=== PATIENT | male | born 2000 | race Caucasian/White ===

== ENCOUNTER 2023-08-11 06:45 | Emergency (ER) | payer BC, SELFPAY ==
[2023-08-11 06:54] VITALS: BP 146/88
[2023-08-11 07:11] LABS: Urine Albumin Trace (Neg - Trace); Urine Bilirubin Negative (Negative); Urine Character Slightly Cloudy (Clear); Urine Color Yellow; Urine Glucose Negative (Negative); Urine Ketone Negative (Negative); Urine Leukocyte Trace (Negative); Urine Nitrite Negative (Negative); Urine Occult Blood 4+ (Negative); Urine Specific Gravity 1.015 (<1.030); Urine Urobilinogen Negative (Neg - 1+)
--- NOTE | 2023-08-11 07:27 | ED.GENMED ---
History of Present Illness
General
Chief Complaint: Urinary Symptoms
Source: patient
Exam Limitations: none
Time Seen by Provider: 08/11/23 07:15
Nursing documentation reviewed up to this point in time: agreed with
Travel History
Have you had any contact with someone who has COVID-19?: No
Do you have any symptoms of coronavirus? Fever > 100 degrees, chills, cough, shortness of breath, sore throat, loss of taste or smell, muscle aches, or headache?: No
History of Present Illness
History of Present Illness:
22-year-old male brought to the ER by father for evaluation. Patient had hematuria yesterday and was awoken by right flank pain 5 AM this morning. Patient complains of pain to the right flank rating to his right abdomen. He denies any fever or
chills. He has vomited several times. He reports he had his appendix out 2 months ago. No prior history of renal stone.
Past History
Past History
ED Past Medical History: Asthma and Psychiatric (Anxiety, depression, bipolar)
ED Past Surgical History: None
Social History
Tobacco: Smoker
Drug: Marijuana (Medical marijuana)
Review of Systems
Review of Systems
Allergies reviewed?: Yes
All Other Systems: ROS reviewed and negative except as documented in HPI and ROS
Constitutional: Reports no symptoms; Denies fever, fatigue or chills
EENT: Reports no symptoms
Respiratory: Reports no symptoms
Cardiac: Reports no symptoms
ABD/GI: Reports abdominal pain, nausea and vomiting
: Reports flank pain
Musculoskeletal: Reports no symptoms
Skin: Reports no symptoms
Neurological: Reports no symptoms
Psychiatric: Reports no symptoms
Phy Exam
General Physical Exam
General Presentation: mild distress
General age: appears stated age
General Skin: diaphoretic
General Habitus: normal
General Mental: alert
Gastrointestinal Exam
Gastrointestinal Exam: non tender and soft
Neurological Exam
Neurological Exam: alert and oriented x3
Musculoskeletal Exam
Musculoskeletal Exam: full ROM
Skin Exam
Skin Exam: normal color and warm/dry
Psychiatric Exam
Psychiatric Exam: normal mood/affect
Course
Orders/Labs/Results
Orders:
Orders
08/11/23 07:03
Urinalysis Reflex To Culture Urgent
Date Specimen was Collected: 08/11/23
Time Specimen was Collected: 07:02
Urine Microscopic Reflex Cult Urgent
08/11/23 07:19
CT Abd/pel Without Iv Or Oral Urgent
Comment:
Reason For Exam: right flank pain
Ketorolac [Toradol] 15 mg IV NOW STA
08/11/23 07:20
0.9% Sodium Chloride 1000 ml [Nss] 1,000 ml IV BOLUS
08/11/23 07:38
Complete Blood Count/With Diff Urgent
Comprehensive Metabolic Panel Urgent
08/11/23 08:51
Potassium Chloride 10% Elixir [KCl Elixir] 40 meq PO NOW STA
Abnormal Lab Results
08/11/23 08/11/23
07:03 07:38
MPV 11.1 H fL
(7.4-10.4)
Potassium 3.3 L mmol/L
(3.5-5.1)
Glucose 125 H mg/dl
(70-99)
ALT 64 H U/L
(0-50)
Ur Occult Blood Reflex 4+ A
(Negative)
Leukocyte Esterase Rfl Trace A
(Negative)
Urine RBC >100 A /HPF
(0-2)
Urine Bacteria (Reflex) Few A
(Negative)
08/11/23 07:38
08/11/23 07:38
Vital Signs
Initial and Last Documented VS:
Initial Vital Signs
Temp Pulse Resp BP Pulse Ox
97.8 F 77 28 146/88 98
08/11/23 06:54 08/11/23 06:54 08/11/23 06:54 08/11/23 06:54 08/11/23 06:54
Last Documented Vital Signs
Temp Pulse Resp BP Pulse Ox
97.8 F 77 28 146/88 98
08/11/23 06:54 08/11/23 06:54 08/11/23 06:54 08/11/23 06:54 08/11/23 06:54
Student Ministries Director consulted with Physician
Student Ministries Director consulted with physician?: Yes
Name of Physician Consulted: elias
MDM/Problems Addressed
Differential Diagnosis Includes:
not limited to: renal colic, uti muscle pain
MDM/Problems Addressed:
Patient with 1.5 mm partially obstructing calculus in the distal right ureter approxi-4 cm above the UVJ. Patient comfortable here after receiving Toradol. No evidence of UTI. Patient's potassium slight low at 3.3. Patient given 1 dose of oral
KCl educated on potassium rich foods.
will d/c with flomax, pain meds if needed outpt ortho follow up
*Radiology
Radiology exam reviewed: radiology read reviewed
*Pulse Oximetry
Patient hypoxic: no
*Critical Care Note
Total Time (30-74mins, 75-104mins- exclusive of procedures): Not Applicable
ED Attending Note
-
Portions of this chart may have been created with voice recognition software.� Occasional wrong word or��sound alike� substitutions may have occurred due to the inherent limitations of voice recognition software.
Discharge Plan
Departure
Patient Disposition: Home (Routine Discharge)
Date of Disposition: 08/11/23
Time of Disposition: 08:55
Patient with high blood pressure during this ER visit?: Yes
Condition: Fair
Covid-19: Not Applicable
Discharge Problem:
Renal colic on right side
Instructions: Renal Colic (DC), BLOOD PRESSURE
Prescriptions:
New
hydrocodone-acetaminophen 5-300 mg tablet
1 tab PO Q6H PRN (Reason: Pain) Qty: 10 0RF
tamsulosin [Flomax] 0.4 mg capsule
0.4 mg PO DAILY Qty: 7 0RF
No Action
divalproex [Depakote ER] 500 mg Tablet Extended Release 24 Hr
1,250 mg PO DAILY
fluoxetine 60 mg Tablet
60 mg PO DAILY
lorazepam 1 mg tablet
1 mg PO TID PRN (Reason: anxiety) Qty: 5 0RF
acetaminophen [acetaminophen] 325 mg tablet
650 mg PO Q4HPRN PRN (Reason: mild pain) Qty: 1 0RF
ibuprofen 200 mg tablet
400 - 600 mg PO Q6HPRN PRN (Reason: moderate pain) Qty: 1 0RF
oxycodone 5 mg tablet
5 mg PO Q4HPRN PRN (Reason: breakthrough/severe pain) Qty: 10 0RF
Referrals:
Randall Martinez MD [Active] -
Activity Restrictions/Additional Instructions:
As discussed your CAT scan shows a kidney stone. You may take ibuprofen 600 mg every 8 hours with food however if does not relieve your symptoms you may take narcotic pain medication which has been sent to your pharmacy. This will cause
constipation please take [id number] Colace, stool softener while taking this medication. Do not drive or drink alcohol while taking this medication.
Stay well-hydrated. Strain urine.
Follow-up with urology in the next several days please call Sunday for an appointment. Return if any worsening of symptoms or increased pain fever nausea vomiting.
Interventions
Interventions:
*Risk Screen - Suicide Last Done: 08/11/23 07:27
*General Assessment Last Done: 08/11/23 07:27
*Neglect/Abuse Screening Last Done: 08/11/23 07:27
ED- Fall Risk Assessment Last Done: 08/11/23 07:27
*ED COVID-19 Vaccine History Last Done: 08/11/23 07:27
ED-Male Genitourinary Assessment Last Done: 08/11/23 07:27
[2023-08-11] MEDS: TORADOL 15 MG IV (07:38)
[2023-08-11] MEDS: NSS 1000 IV (07:39)
[2023-08-11 07:52] LABS: % Basophils 0.3 % (0-2); % Eosinophils 0.7 % (0-6); % Immature Granulocytes 0.4 % (0-0.5); % Lymphocytes 27.6 % (20.5-51.1); % Monocytes 9.2 % (1.7-9.3); % Neutrophils 61.8 % (42.2-75.2); Absolute Eosinophils 0.1 10^3/uL (0-0.7); Absolute Lymphocytes 1.9 10^3/uL (1.2-3.4); Absolute Monocytes 0.6 10^3/uL (0.1-0.6); Absolute Neutrophils 4.3 10^3/uL (1.4-6.5); Hemoglobin 15.5 g/dL (13.0-18.0); Mean Corp Hgb Conc. 36.9 g/dL (33.0-37.0); Mean Corpuscular Hgb 30.3 pg (27.0-31.0); Mean Platelet Volume 11.1 fL (7.4-10.4); Nucleated Red Blood Cells % 0 % (-); Platelet Count 211 10^3/uL (130-400); Red Blood Cell Count 5.12 10^6/uL (4.70-6.10); Red Cell Dist. Width 11.7 % (11.5-14.5)
[2023-08-11 07:59] LABS: ALT (SGPT) 64 U/L (0-50); AST (SGOT) 42 U/L (17-59); Albumin 4.8 g/dl (3.5-5.0); Alkaline Phosphatase 58 U/L (38-126); Blood Urea Nitrogen 15 mg/dl (9-20); Calcium 9.3 mg/dl (8.4-10.2); Carbon Dioxide 28 mmol/L (22-30); Chloride 105 mmol/L (98-107); Glucose 125 mg/dl (70-99); Potassium 3.3 mmol/L (3.5-5.1); Sodium 140 mmol/L (135-145); Total Bilirubin 0.7 mg/dl (0.2-1.3); Total Protein 7.9 g/dl (6.3-8.2); eGFR > 60.00
[2023-08-11 08:00] LABS: Urine Red Blood Cell >100 /HPF (0-2); Urine Squamous Cell 0-2 /LPF (Few)
[2023-08-11 08:01] LABS: Urine Bacteria Few (Negative); Urine Mucus Moderate; Urine White Cell 0-2 /HPF (0-5)
[2023-08-11] MEDS: KCL ELIXIR 40 MEQ PO (09:20)
[2023-08-11 09:29] VITALS: BP 132/74
== END 2023-08-11 09:31 | disposition home or self-care (01) ==
LOC: EMR 06:45
PROVIDERS: Nurse Practitioner; EMERGENCY PHYSICIAN Student in an Organized Health Care Education/Training Program; FAMILY PHYSICIAN Family Medicine
DX: N13.2 Hydronephrosis with renal and ureteral calculous obstruction (principal); R31.9 Hematuria, unspecified; F17.200 Nicotine dependence, unspecified, uncomplicated; R11.2 Nausea with vomiting, unspecified
CPT/HCPCS: 99285; 96374; 96361; 74176; 80053; 81003; 81015; 85025

== ENCOUNTER → 2023-08-28 10:09 | Outpatient (REF) | payer BC, SELFPAY | LOC: RAD 10:09 | PROVIDERS: ATTENDING PHYSICIAN Surgery; FAMILY PHYSICIAN Nurse Practitioner Family | DX: N13.2 Hydronephrosis with renal and ureteral calculous obstruction (principal) | CPT/HCPCS: 74018 ==

== ENCOUNTER → 2023-10-25 16:29 | Outpatient (REF) | payer BC, SELFPAY | LOC: RAD 16:29 | PROVIDERS: ATTENDING PHYSICIAN Surgery | DX: N13.2 Hydronephrosis with renal and ureteral calculous obstruction (principal) | CPT/HCPCS: 74176 ==

== ENCOUNTER 2023-12-29 14:38 | Emergency (ER) | payer BC, SELFPAY ==
[2023-12-29 14:44] VITALS: BP 169/92
[2023-12-29 15:09] VITALS: BMI 34.3
--- NOTE | 2023-12-29 15:15 | ED.GENMED ---
History of Present Illness
General
Chief Complaint: Flank Pain
Source: patient and family
Time Seen by Provider: 12/29/23 15:05
Travel History
Have you had any contact with someone who has COVID-19?: No
Do you have any symptoms of coronavirus? Fever > 100 degrees, chills, cough, shortness of breath, sore throat, loss of taste or smell, muscle aches, or headache?: No
History of Present Illness
History of Present Illness:
23-year-old male presents to the emergency room complaining of left flank pain. Patient states the pain began suddenly while at work. He does have a history of kidney stones and this seems similar. No known fever. He is nauseous and has vomited.
Patient rates the pain as severe.
Past History
Past History
ED Past Medical History: Asthma and Psychiatric (Anxiety, depression, bipolar)
ED Past Surgical History: None
Social History
Tobacco: Smoker
Drug: Marijuana (Medical marijuana)
Phy Exam
Physical Exam
Physical Exam:
General: Awake, Alert, Oriented X3. Appears uncomfortable
Vitals: unremarkable
Head: Atraumatic
Eyes: Pupils equal, EOMI
Throat: Airway intact, no exudates
Neck: Trachea midline
Lungs: Clear and equal b/l
Heart: Regular rate, no murmurs
Abd: Soft, Nontender, No pulsatile mass
Back: Positive left CVA tenderness to percussion
Neuro: Nonfocal
Skin: Somewhat diaphoretic
Extremities: pulses equal b/l, no edema
Course
Orders/Labs/Results
Orders:
Orders
12/29/23 15:14
0.9% Sodium Chloride 500 ml [Nss] 500 ml IV BOLUS
HYDROmorphone [Dilaudid] 0.5 mg IV NOW STA
Ketorolac [Toradol] 15 mg IV NOW STA
Ondansetron Injectable [Zofran] 4 mg IV NOW STA
12/29/23 15:15
CT Abd/pel Without Iv Or Oral Urgent
Comment:
Reason For Exam: left flank pain
12/29/23 15:20
Basic Metabolic Panel Urgent
Complete Blood Count/With Diff Urgent
12/29/23 16:01
Urinalysis Reflex To Culture Urgent
Date Specimen was Collected: 12/29/23
Time Specimen was Collected: 15:53
Urine Microscopic Reflex Cult Urgent
Abnormal Lab Results
12/29/23 12/29/23
15:20 16:01
MCV 78.6 L fL
(80.0-94.0)
MCHC 37.8 H g/dL
(33.0-37.0)
MPV 11.3 H fL
(7.4-10.4)
Neutrophils % 76.8 H %
(42.2-75.2)
Lymphocytes % 15.5 L %
(20.5-51.1)
Carbon Dioxide 19 L mmol/L
(22-30)
Glucose 129 H mg/dl
(70-99)
Urine Ketones Trace A
(Negative)
Ur Occult Blood Reflex 4+ A
(Negative)
Leukocyte Esterase Rfl Trace A
(Negative)
Urine RBC 70-80 A /HPF
(0-2)
Urine Albumin (Reflex) 1+ A
(Neg - Trace)
12/29/23 15:20
12/29/23 15:20
Vital Signs
Initial and Last Documented VS:
Initial Vital Signs
Temp Pulse Resp BP Pulse Ox
97.7 F 74 16 169/92 98
12/29/23 14:44 12/29/23 14:44 12/29/23 14:44 12/29/23 14:44 12/29/23 14:44
Last Documented Vital Signs
Temp Pulse Resp BP Pulse Ox
97.7 F 74 16 124/83 97
12/29/23 14:44 12/29/23 14:44 12/29/23 14:44 12/29/23 17:12 12/29/23 17:12
*Radiology
Radiology exam reviewed: radiology read reviewed
*Pulse Oximetry
Patient hypoxic: no
*Critical Care Note
Total Time (30-74mins, 75-104mins- exclusive of procedures): Not Applicable
ED Attending Note
-
Portions of this chart may have been created with voice recognition software.� Occasional wrong word or��sound alike� substitutions may have occurred due to the inherent limitations of voice recognition software.
Discharge Plan
Departure
Patient Disposition: Home (Routine Discharge)
Date of Disposition: 12/29/23
Time of Disposition: 17:10
Patient with high blood pressure during this ER visit?: Yes
Condition: Good
Discharge Problem:
Kidney stone on left side
Instructions: Kidney Stones (DC), BLOOD PRESSURE
Prescriptions:
New
oxycodone 5 mg tablet
5 mg PO Q6H PRN (Reason: Pain) Qty: 12 0RF
No Action
divalproex [Depakote ER] 500 mg Tablet Extended Release 24 Hr
1,250 mg PO DAILY
fluoxetine 60 mg Tablet
60 mg PO DAILY
lorazepam 1 mg tablet
1 mg PO TID PRN (Reason: anxiety) Qty: 5 0RF
acetaminophen [acetaminophen] 325 mg tablet
650 mg PO Q4HPRN PRN (Reason: mild pain) Qty: 1 0RF
ibuprofen 200 mg tablet
400 - 600 mg PO Q6HPRN PRN (Reason: moderate pain) Qty: 1 0RF
oxycodone 5 mg tablet
5 mg PO Q4HPRN PRN (Reason: breakthrough/severe pain) Qty: 10 0RF
hydrocodone-acetaminophen 5-300 mg tablet
1 tab PO Q6H PRN (Reason: Pain) Qty: 10 0RF
tamsulosin [Flomax] 0.4 mg capsule
0.4 mg PO DAILY Qty: 7 0RF
Referrals:
Randall Martinez MD [Active] -
UNKNOWN - PT DOES,NOT KNOW [Family Provider] -
Interventions
Interventions:
*Risk Screen - Suicide Last Done: 12/29/23 15:37
*General Assessment Last Done: 12/29/23 15:11
*Neglect/Abuse Screening Last Done: 12/29/23 15:37
ED- Fall Risk Assessment Last Done: 12/29/23 15:37
*ED COVID-19 Vaccine History Last Done: 12/29/23 14:44
*Nursing Disposition Last Done: 12/29/23 17:28
ZC-Uylnwg-Sqtvhyzxnv Assessment Last Done: 12/29/23 15:37
ED-Male Genitourinary Assessment Last Done: 12/29/23 15:37
Discharge Date and Time
Discharge Date/Time: 12/29/23 17:29
Print Language: GUAMANIAN
[2023-12-29] MEDS: ZOFRAN 4 MG IV (15:25)
[2023-12-29] MEDS: TORADOL 15 MG IV (15:28)
[2023-12-29] MEDS: NSS 500 IV (15:28)
[2023-12-29] MEDS: DILAUDID 0.5 MG IV (15:30)
[2023-12-29 15:33] LABS: % Basophils 0.4 % (0-2); % Eosinophils 0.4 % (0-6); % Immature Granulocytes 0.1 % (0-0.5); % Lymphocytes 15.5 % (20.5-51.1); % Monocytes 6.8 % (1.7-9.3); % Neutrophils 76.8 % (42.2-75.2); Absolute Lymphocytes 1.2 10^3/uL (1.2-3.4); Absolute Monocytes 0.5 10^3/uL (0.1-0.6); Absolute Neutrophils 5.9 10^3/uL (1.4-6.5); Hematocrit 41.2 % (39.0-52.0); Hemoglobin 15.7 g/dL (13.0-18.0); Mean Corpuscular Volume 78.6 fL (80.0-94.0); Mean Platelet Volume 11.3 fL (7.4-10.4); Nucleated Red Blood Cells % 0 % (-); Platelet Count 205 10^3/uL (130-400); Red Blood Cell Count 5.24 10^6/uL (4.70-6.10); Red Cell Dist. Width 11.8 % (11.5-14.5); White Blood Cell Count 7.7 10^3/uL (4.8-10.8)
[2023-12-29 15:34] VITALS: BP 149/93
[2023-12-29 15:49] LABS: Blood Urea Nitrogen 15 mg/dl (9-20); Calcium 10.1 mg/dl (8.4-10.2); Carbon Dioxide 19 mmol/L (22-30); Chloride 107 mmol/L (98-107); Estimated Creatinine Clearance > 125 ml/min; Glucose 129 mg/dl (70-99); Potassium 4.1 mmol/L (3.5-5.1); Sodium 139 mmol/L (135-145); eGFR > 60.00
[2023-12-29 16:12] VITALS: BP 137/68
[2023-12-29 16:16] LABS: Urine Albumin 1+ (Neg - Trace); Urine Bilirubin Negative (Negative); Urine Character Very Cloudy (Clear); Urine Color Brown; Urine Glucose Negative (Negative); Urine Ketone Trace (Negative); Urine Leukocyte Trace (Negative); Urine Nitrite Negative (Negative); Urine Occult Blood 4+ (Negative); Urine Urobilinogen Negative (Neg - 1+)
[2023-12-29 16:41] LABS: Urine Red Blood Cell 70-80 /HPF (0-2)
[2023-12-29 16:42] LABS: Urine White Cell 0-2 /HPF (0-5)
[2023-12-29 17:12] VITALS: BP 124/83
[2023-12-29 17:25] LABS: Anisocytosis 1+; Mean Corp Hgb Conc. 37.8 g/dL (33.0-37.0); Microcytosis 3+; Normal RBC Morphology No; Spherocytes 1+
== END 2023-12-29 17:29 | disposition home or self-care (01) ==
LOC: EMR 14:38
PROVIDERS: EMERGENCY PHYSICIAN Emergency Medicine
DX: N20.0 Calculus of kidney (principal); F41.9 Anxiety disorder, unspecified; F31.9 Bipolar disorder, unspecified; F32.A Depression, unspecified; J45.909 Unspecified asthma, uncomplicated; F17.200 Nicotine dependence, unspecified, uncomplicated; Z87.442 Personal history of urinary calculi; Z88.1 Allergy status to other antibiotic agents
CPT/HCPCS: 99284; 96374; 96375 ×2; 96361; 74176; 80048; 81003; 81015; 85025

== ENCOUNTER 2023-12-31 18:09 | Emergency (ER) | payer BC, SELFPAY ==
[2023-12-31 18:16] VITALS: BP 106/87
--- NOTE | 2023-12-31 19:03 | ED.GENMED ---
History of Present Illness
General
Chief Complaint: Flank Pain
Source: patient and family (Mother)
Exam Limitations: none
Time Seen by Provider: 12/31/23 18:22
Travel History
Have you had any contact with someone who has COVID-19?: No
Do you have any symptoms of coronavirus? Fever > 100 degrees, chills, cough, shortness of breath, sore throat, loss of taste or smell, muscle aches, or headache?: No
History of Present Illness
History of Present Illness:
This is a 23 year old male that comes in with c/o left flank pain. States that he was here on Sunday and was diagnosed with a kidney stone and renal calculus. State that he was given oxycodone. Patient today started with vomiting. States that he
as not given any Zofran or Flomax but he called the urologist office today and they called this in for patient. States that the was still vomiting. Denies any fever, chills, chest pain, SOB, diarrhea, headache, dizziness, urinary burning.
Past History
Past History
ED Past Medical History: Asthma and Psychiatric (Anxiety, depression, bipolar)
ED Past Surgical History: Appendectomy
Social History
Tobacco: Smoker
Alcohol: None
Drug: Marijuana (Medical marijuana)
Personal: Single
Living: with family
Review of Systems
Review of Systems
All Other Systems: ROS reviewed and negative except as documented in HPI and ROS
Constitutional: Reports no symptoms; Denies fever or chills
EENT: Reports no symptoms
Respiratory: Reports no symptoms; Denies cough or trouble breathing
Cardiac: Reports no symptoms; Denies chest pain
ABD/GI: Reports nausea and vomiting; Denies abdominal pain or diarrhea
: Reports flank pain (Left Sided); Denies dysuria, frequency or urgency
Musculoskeletal: Reports no symptoms
Skin: Reports no symptoms
Neurological: Reports no symptoms; Denies dizzy or headache
Psychiatric: Reports no symptoms
Phy Exam
General Physical Exam
General Presentation: mild distress
General age: appears stated age
General Skin: warm and dry
General Habitus: normal and obese
General Mental: alert
General Hydration: appears well hydrated
ENT Exam
ENT Exam: TM's normal, pharynx normal and neck supple
Eye Exam
Eye Exam: EOMI
Cardiovascular Exam
Cardiovascular Exam: regular rate/rhythm, no edema, no murmur and normal peripheral pulses
Pulmonary Exam
Pulmonary Exam: no respiratory distress, no rales, chest non tender, no crackles, no rhonchi, no wheezing, no cough and decreased breath sounds (At bases)
Gastrointestinal Exam
Gastrointestinal Exam: normal bowel sounds, non tender, soft, no organomegaly, no pulsatile mass, non distended and no cva tenderness
Musculoskeletal Exam
Musculoskeletal Exam: full ROM and no edema
Skin Exam
Skin Exam: normal color, warm/dry, no rash and no petechia
Psychiatric Exam
Psychiatric Exam: normal mood/affect
Course
Orders/Labs/Results
Orders:
Orders
12/31/23 19:02
0.9% Sodium Chloride 1000 ml [Nss] 1,000 ml IV BOLUS
Ketorolac [Toradol] 30 mg IV NOW STA
Ondansetron Injectable [Zofran] 4 mg IV NOW STA
US Renal Only W/O Bladder Urgent
Comment:
Reason For Exam: Left flank pain. renal calculus ureter
12/31/23 19:46
Complete Blood Count/With Diff Urgent
Comprehensive Metabolic Panel Urgent
12/31/23 20:48
HYDROmorphone [Dilaudid] 0.5 mg IV NOW STA
12/31/23 21:20
Urinalysis Reflex To Culture Urgent
Date Specimen was Collected: 12/31/23
Time Specimen was Collected: 21:19
Urine Microscopic Reflex Cult Urgent
Urine Culture Urgent
DANIEL Source: U
Specimen Description:
Date Specimen was Collected: 12/31/23
Time Specimen was Collected: 21:19
12/31/23 21:40
Ondansetron Orally Disint [Zofran Odt (Orally Disintegrating)] 4 mg PO NOW STA
Abnormal Lab Results
12/31/23 12/31/23
19:46 21:20
RBC 4.63 L 10^6/uL
(4.70-6.10)
Hct 36.8 L %
(39.0-52.0)
MCV 79.5 L fL
(80.0-94.0)
MCHC 37.5 H g/dL
(33.0-37.0)
MPV 10.5 H fL
(7.4-10.4)
Abs Immat Gran (auto) 0.1 H 10^3/uL
(0-0.05)
Absolute Neuts (auto) 8.4 H 10^3/uL
(1.4-6.5)
Absolute Lymphs (auto) 0.8 L 10^3/uL
(1.2-3.4)
Neutrophils % 85.2 H %
(42.2-75.2)
Lymphocytes % 8.0 L %
(20.5-51.1)
Glucose 104 H mg/dl
(70-99)
Urine Ketones 1+ A
(Negative)
Ur Occult Blood Reflex 4+ A
(Negative)
Urine RBC 7-10 A /HPF
(0-2)
Urine Bacteria (Reflex) Moderate A
(Negative)
12/31/23 19:46
12/31/23 19:46
Glucose nonfasting. Urine negative for infection.
Vital Signs
Initial and Last Documented VS:
Initial Vital Signs
Temp Pulse Resp BP Pulse Ox
97.4 F 59 18 106/87 98
12/31/23 18:16 12/31/23 18:16 12/31/23 18:16 12/31/23 18:16 12/31/23 18:16
Last Documented Vital Signs
Temp Pulse Resp BP Pulse Ox
97.4 F 59 18 106/87 98
12/31/23 18:16 12/31/23 18:16 12/31/23 18:16 12/31/23 18:16 12/31/23 18:16
MDM/Problems Addressed
Differential Diagnosis Includes:
Renal calculus,
MDM/Problems Addressed:
This is a 23 year old male that comes in with c/o left flank pain and vomiting. States that he was here on Sunday and that he was given Oxycodone. States that this didn't help his pain as he took this at 2pm and then around 4:30pm. States that he
is vomiting. Patient called the urologist office and was started on Flomax and Zofran.
will check labs, urine and get US. Will also give pain medication and IV fluids
Back into see patient. Explained that he is still having a little left sided pain. Explained that the US shows mild hydronephrosis. Patient to continue with the Flomax that he was prescribed today. Will give patient a prescription for Zofran and
Toradol. Patient to follow up with the Neurologist. Patient to return with any concerns.
Chronic conditions affecting care:
NA
Acute Exacerbation and/or Progression of Chronic Illness:
renal calculus
*Radiology
Radiology exam reviewed: radiology read reviewed (US-Mild left hydronephrosis. )
*Pulse Oximetry
Patient hypoxic: no
*EKG
Interpreted by ED Provider?: NA
Rate: EKG- N/A
*Varnisher Plasticoater Interpretation
Rate: Varnisher Plasticoater- N/A
*Critical Care Note
Total Time (30-74mins, 75-104mins- exclusive of procedures): Not Applicable
ED Attending Note
-
Portions of this chart may have been created with voice recognition software.� Occasional wrong word or��sound alike� substitutions may have occurred due to the inherent limitations of voice recognition software.
Discharge Plan
Departure
Patient Disposition: Home (Routine Discharge)
Date of Disposition: 12/31/23
Time of Disposition: 21:41
Patient with high blood pressure during this ER visit?: No
Condition: Good
Covid-19: Not Applicable
Discharge Problem:
Renal calculus, left
Instructions: Renal Colic (DC)
Prescriptions:
New
ketorolac 10 mg tablet
10 mg PO Q8H PRN (Reason: Pain) Qty: 15 0RF
Rx Instructions:
maximum total duration of 5 days from all oral, intranasal, or parenteral formulations
ondansetron 4 mg tablet,disintegrating
4 mg PO Q8H PRN (Reason: nausea and vomiting) Qty: 7 0RF
No Action
divalproex [Depakote ER] 500 mg Tablet Extended Release 24 Hr
1,250 mg PO DAILY
fluoxetine 60 mg Tablet
60 mg PO DAILY
lorazepam 1 mg tablet
1 mg PO TID PRN (Reason: anxiety) Qty: 5 0RF
acetaminophen [acetaminophen] 325 mg tablet
650 mg PO Q4HPRN PRN (Reason: mild pain) Qty: 1 0RF
ibuprofen 200 mg tablet
400 - 600 mg PO Q6HPRN PRN (Reason: moderate pain) Qty: 1 0RF
oxycodone 5 mg tablet
5 mg PO Q4HPRN PRN (Reason: breakthrough/severe pain) Qty: 10 0RF
hydrocodone-acetaminophen 5-300 mg tablet
1 tab PO Q6H PRN (Reason: Pain) Qty: 10 0RF
tamsulosin [Flomax] 0.4 mg capsule
0.4 mg PO DAILY Qty: 7 0RF
oxycodone 5 mg tablet
5 mg PO Q6H PRN (Reason: Pain) Qty: 12 0RF
Referrals:
Zbigniew Garcia MD [Active] - Follow up in 5-7 days
Stormy Barraza DO [Family Provider] -
Activity Restrictions/Additional Instructions:
As discussed, your blood work is normal and your US shows very mild Hydronephrosis. Please increase your water intake to 8-8oz glasses daily. Use the Flomax daily as prescribed. You have had 2 prescriptions sent to your Pharmacy. The first is for
Zofran that will help any nausea/vomiting. The second is Toradol for pain. PLEASE DO NOT TAKE ANY MOTRIN, ALEVE OR ADVIL WHEN TAKING THE TORADOL. Follow up with the Urologist in the next 5-7 days. Continue to strain your urine. IF YOU HAVE A FEVER,
INCREASED OR CHANGING PAIN OR YOU HAVE ANY OTHER CONCERNS PLEASE RETURN TO THE EMERGENCY ROOM.
Interventions
Interventions:
*Risk Screen - Suicide Last Done: 12/31/23 18:18
*General Assessment Last Done: 12/31/23 18:18
*Neglect/Abuse Screening Last Done: 12/31/23 18:18
ED- Fall Risk Assessment Last Done: 12/31/23 18:24
LX-Fufaoa-Oyyuvtubse Assessment Last Done: 12/31/23 18:24
ED-Male Genitourinary Assessment Last Done: 12/31/23 18:24
Discharge Date and Time
Print Language: YAKUT
[2023-12-31] MEDS: ZOFRAN 4 MG IV (19:50)
[2023-12-31] MEDS: NSS 1000 IV (19:50)
[2023-12-31] MEDS: TORADOL 30 MG IV (19:51)
[2023-12-31 19:59] LABS: % Basophils 0.3 % (0-2); % Eosinophils 0.1 % (0-6); % Immature Granulocytes 0.5 % (0-0.5); % Monocytes 5.9 % (1.7-9.3); % Neutrophils 85.2 % (42.2-75.2); Absolute Immature Granulocytes 0.1 10^3/uL (0-0.05); Absolute Lymphocytes 0.8 10^3/uL (1.2-3.4); Absolute Monocytes 0.6 10^3/uL (0.1-0.6); Absolute Neutrophils 8.4 10^3/uL (1.4-6.5); Hematocrit 36.8 % (39.0-52.0); Hemoglobin 13.8 g/dL (13.0-18.0); Mean Corp Hgb Conc. 37.5 g/dL (33.0-37.0); Mean Corpuscular Hgb 29.8 pg (27.0-31.0); Mean Corpuscular Volume 79.5 fL (80.0-94.0); Mean Platelet Volume 10.5 fL (7.4-10.4); Nucleated Red Blood Cells % 0 % (-); Platelet Count 207 10^3/uL (130-400); Red Blood Cell Count 4.63 10^6/uL (4.70-6.10); Red Cell Dist. Width 11.9 % (11.5-14.5); White Blood Cell Count 9.9 10^3/uL (4.8-10.8)
[2023-12-31 20:32] LABS: ALT (SGPT) 46 U/L (0-50); AST (SGOT) 29 U/L (17-59); Albumin 4.5 g/dl (3.5-5.0); Alkaline Phosphatase 51 U/L (38-126); Blood Urea Nitrogen 15 mg/dl (9-20); Calcium 9.2 mg/dl (8.4-10.2); Carbon Dioxide 23 mmol/L (22-30); Chloride 107 mmol/L (98-107); Glucose 104 mg/dl (70-99); Potassium 3.8 mmol/L (3.5-5.1); Sodium 139 mmol/L (135-145); Total Bilirubin 0.8 mg/dl (0.2-1.3); Total Protein 7.2 g/dl (6.3-8.2); eGFR > 60.00
[2023-12-31] MEDS: DILAUDID 0.5 MG IV (21:15)
[2023-12-31 21:22] VITALS: BP 122/65
[2023-12-31 21:31] LABS: Urine Albumin Trace (Neg - Trace); Urine Bilirubin Negative (Negative); Urine Character Clear (Clear); Urine Color Yellow; Urine Glucose Negative (Negative); Urine Ketone 1+ (Negative); Urine Leukocyte Negative (Negative); Urine Nitrite Negative (Negative); Urine Occult Blood 4+ (Negative); Urine Specific Gravity 1.025 (<1.030); Urine Urobilinogen Negative (Neg - 1+)
[2023-12-31 21:36] LABS: Urine Mucus Many
[2023-12-31 21:38] LABS: Urine White Cell 0-2 /HPF (0-5)
[2023-12-31 21:39] LABS: Urine Bacteria Moderate (Negative)
[2023-12-31 22:00] VITALS: BP 116/72
[2023-12-31] MEDS: ZOFRAN ODT (ORALLY DISINTEGRATING) 4 MG PO (22:06)
== END 2023-12-31 22:28 | disposition home or self-care (01) ==
LOC: EMR 18:09
PROVIDERS: Clinical Nurse Specialist Family Health; EMERGENCY PHYSICIAN Emergency Medicine; FAMILY PHYSICIAN Family Medicine
DX: N13.2 Hydronephrosis with renal and ureteral calculous obstruction (principal); R11.2 Nausea with vomiting, unspecified; R10.9 Unspecified abdominal pain; F41.9 Anxiety disorder, unspecified; F31.9 Bipolar disorder, unspecified; F32.A Depression, unspecified; J45.909 Unspecified asthma, uncomplicated; F17.200 Nicotine dependence, unspecified, uncomplicated; Z88.1 Allergy status to other antibiotic agents
CPT/HCPCS: 99284; 96374; 96375 ×2; 96361 ×2; 76775; 80053; 81003; 81015; 85025; 87086

== ENCOUNTER 2024-01-01 17:43 | Inpatient (IN) | payer BC, SELFPAY ==
[2024-01-01 15:01] VITALS: BP 137/87
--- NOTE | 2024-01-01 15:20 | ED.GENMED ---
History of Present Illness
General
Chief Complaint: Flank Pain
Time Seen by Provider: 01/01/24 15:20
Travel History
Have you had any contact with someone who has COVID-19?: No
Do you have any symptoms of coronavirus? Fever > 100 degrees, chills, cough, shortness of breath, sore throat, loss of taste or smell, muscle aches, or headache?: No
History of Present Illness
History of Present Illness:
HPI: Patient presents due to left-sided flank pain with known kidney stone. Patient has been having intermittent pain over this last several days. He was found to have a 1.5mm distal left ureteral stone. He woke up this morning with only minimal
discomfort but throughout the day the pain worsened dramatically so he came back here now for third time in the last few days.
EXAM:
GENERAL: Well appearing but appears uncomfortable, he is squatting next the stretcher and cannot find a comfortable position
HEENT: Moist oral mucosa
CARDIOVASCULAR: No murmurs, normal heart rate, regular rhythm, No chest wall tenderness
PULMONARY: No respiratory distress, breath sounds are clear and equal
ABDOMEN: Soft with no peritoneal signs, no significant abdominal tenderness
NEUROLOGIC: Excellent strength all extremities, no coordination deficits
PSYCHIATRIC: Appropriate mental status, normal insight and judgement
EXTREMITIES: Nontender, no edema, moves all extremities equally
SKIN: No rash, no lesions
TIME OF INITIAL ENCOUNTER: 3:25 PM
NUMBER AND COMPLEXITY OF PROBLEMS ADDRESSED AT THE ENCOUNTER
� Chronic conditions affecting care: Kidney stones, anxiety/depression, bipolar disorder, has had appendectomy
� Acute Exacerbation and/or Progression of Chronic Illness: This is an acute problem
� Differential Diagnosis includes: Ureteral stone, UTI, pyelonephritis
AMOUNT AND/OR COMPLEXITY OF DATA TO BE REVIEWED AND ANALYZED
� I performed an independent evaluation of and my interpretation is:
EKG:
CT:
X-rays:
Laboratory Studies: CBC unremarkable, chemistries unremarkable. Urinalysis again shows blood without clear evidence for infection.
Other:
� Review of other/old records: I reviewed records. The patient was seen here 3 days ago as well as yesterday. CT from 3 days ago showed a 1.5 mm partially obstructing stone in the distal left ureter with mild left-sided
hydroureter/mild hydronephrosis; ultrasound from yesterday showed mild left hydronephrosis. CBC and chemistries from these past 2 days were unremarkable. Urinalysis from these past 2 days showed 4+ blood with no clear evidence for infection.
� Clinical information was obtained by an independent historian: I spoke to mother at bedside
� Prescriptions/Medications Considered but not given:
� Further testing considered but not performed:
RISK OF COMPLICATIONS AND/OR MORBIDITY OR MORTALITY OF PATIENT MANAGEMENT
� Social determinants of health affecting care: Lives at home
� Discussion with other providers: Discussed case with Dr. Lechuga at 3:30 PM�he accepts to his service for pain control.
� Escalation of care including admission/observation vs risk of discharge considered: The patient has been doing poorly as an outpatient. Will try IV narcotic analgesia again and reassess and will defer plan to urology. After
Toradol was given, the patient does not feel any significant improvement. Will add IV Dilaudid and Zofran as well as Flomax.
Past History
Past History
ED Past Medical History: Asthma and Psychiatric (Anxiety, depression, bipolar)
ED Past Surgical History: Appendectomy
Social History
Tobacco: Smoker
Alcohol: None
Drug: Marijuana (Medical marijuana)
Personal: Single
Living: with family
Phy Exam
Physical Exam
Physical Exam:
See HPI
Course
Orders/Labs/Results
Orders:
Orders
01/01/24 15:29
Urinalysis Reflex To Culture Urgent
0.9% Sodium Chloride 1000 ml [Nss] 1,000 ml IV BOLUS
Ketorolac [Toradol] 15 mg IV NOW STA
01/01/24 15:54
Basic Metabolic Panel Urgent
Complete Blood Count/With Diff Urgent
01/01/24 16:03
HYDROmorphone [Dilaudid] 1 mg IV NOW STA
Ondansetron Injectable [Zofran] 4 mg IV NOW STA
Tamsulosin [Flomax] 0.4 mg PO NOW STA
01/01/24 16:18
Code Status As Directed
Resuscitation Status: Full Code
Acetaminophen [Tylenol] 650 mg PO Q4HPRN PRN
Ondansetron Injectable [Zofran] 4 mg IV Q6HPRN PRN
Oxycodone/Acetaminophen [Percocet 5/325] 1 tablet PO Q4HPRN PRN
Oxycodone/Acetaminophen [Percocet 5/325] 2 tablet PO Q4HPRN PRN
Activity As Directed
Activity Level: As Tolerated
Intake/ Output As Directed
Frequency: Per unit guidelines
Okay to Shower As Directed
Strain Urine As Directed
Vital Signs As Directed
Frequency: Per unit guidelines
01/01/24 16:23
Morphine Sulfate 4 mg IV Q1HPRN PRN
01/01/24 16:30
Normosol (Mult Electrolytes) [Normosol-R] 1,000 ml IV 50 mls/hr
01/01/24 16:58
Admit/Transfer Patient As Directed
Co-Sign Provider:
Level of Care: Inpatient admission
Assign to:: Medical/Surgical
Physician / Group: alexandrea
Diagnosis: left ureteral stone
Reason for Hospitalization: left ureteral stone
Expected length of stay greater than two midnights?: Yes
ELOS- Estimated Length of Stay in days: 3
I certify the patient meets the requirements for IP care: Yes
01/01/24 22:00
Ketorolac [Toradol] 15 mg IV Q6H
Oxcarbazepine [Trileptal] 900 mg PO HS
Tamsulosin [Flomax] 0.4 mg PO HS
vortioxetine [Trintellix] 20 mg PO HS
01/02/24 Breakfast
NPO
Allow oral meds: Yes
Allow clear liquids: 4hrs prior to procedure
Comment: may have unrestricted clear liquid up to 4 hrs prior to scheduled procedure
01/02/24 16:00
Surgical Procedure As Directed
Surgical Procedure: left ureteroscopy
01/02/24 18:00
LevoFLOXacin 500 MG/100 ML [Levaquin] 500 mg in 100 ml IV Q24H
Abnormal Lab Results
01/01/24
15:54
Hct 38.0 L %
(39.0-52.0)
MPV 10.8 H fL
(7.4-10.4)
Absolute Neuts (auto) 6.6 H 10^3/uL
(1.4-6.5)
Absolute Lymphs (auto) 1.0 L 10^3/uL
(1.2-3.4)
Neutrophils % 79.9 H %
(42.2-75.2)
Lymphocytes % 12.3 L %
(20.5-51.1)
Glucose 104 H mg/dl
(70-99)
01/01/24 15:54
01/01/24 15:54
Vital Signs
Initial and Last Documented VS:
Initial Vital Signs
Temp Pulse Resp Pulse Ox
98.2 F 83 24 98
01/01/24 14:55 01/01/24 14:55 01/01/24 14:55 01/01/24 14:55
Last Documented Vital Signs
Temp Pulse Resp BP Pulse Ox
98.2 F 77 18 123/67 96
01/01/24 14:55 01/01/24 16:21 01/01/24 16:21 01/01/24 16:21 01/01/24 16:21
*Critical Care Note
Total Time (30-74mins, 75-104mins- exclusive of procedures): Not Applicable
ED Attending Note
-
Portions of this chart may have been created with voice recognition software.� Occasional wrong word or��sound alike� substitutions may have occurred due to the inherent limitations of voice recognition software.
Discharge Plan
Departure
Patient Disposition: Admit
Date of Disposition: 01/01/24
Time of Disposition: 16:05
Presentation/result/management discussed w/ accepting MD/DO: dr lechuga
Discharge Problem:
Intractable pain
Prescriptions:
No Action
oxcarbazepine 300 mg tablet
900 mg PO HS
Trintellix 20 mg tablet
20 mg PO HS
Referrals:
Stormy Barraza DO [Family Provider] -
Interventions
Interventions:
*Risk Screen - Suicide Last Done: 01/01/24 15:46
*General Assessment Last Done: 01/01/24 15:46
*Neglect/Abuse Screening Last Done: 01/01/24 15:46
*ED COVID-19 Vaccine History Last Done: 01/01/24 15:46
KV-Borppa-Odbsvwkzle Assessment Last Done: 01/01/24 16:04
ED-Male Genitourinary Assessment Last Done: 01/01/24 16:04
Discharge Date and Time
Print Language: TURKISH
[2024-01-01 15:45] VITALS: BMI 34.6
[2024-01-01] MEDS: NSS 1000 IV (15:54)
[2024-01-01] MEDS: TORADOL 15 MG IV ×2 (15:56→21:09)
[2024-01-01 16:05] LABS: % Basophils 0.2 % (0-2); % Eosinophils 0.4 % (0-6); % Immature Granulocytes 0.5 % (0-0.5); % Lymphocytes 12.3 % (20.5-51.1); % Monocytes 6.7 % (1.7-9.3); % Neutrophils 79.9 % (42.2-75.2); Absolute Monocytes 0.6 10^3/uL (0.1-0.6); Absolute Neutrophils 6.6 10^3/uL (1.4-6.5); Mean Corp Hgb Conc. 36.8 g/dL (33.0-37.0); Mean Corpuscular Hgb 29.5 pg (27.0-31.0); Mean Corpuscular Volume 80.2 fL (80.0-94.0); Mean Platelet Volume 10.8 fL (7.4-10.4); Nucleated Red Blood Cells % 0 % (-); Platelet Count 218 10^3/uL (130-400); Red Blood Cell Count 4.74 10^6/uL (4.70-6.10); Red Cell Dist. Width 11.9 % (11.5-14.5); White Blood Cell Count 8.2 10^3/uL (4.8-10.8)
[2024-01-01] MEDS: DILAUDID 1 MG IV (16:15)
[2024-01-01] MEDS: FLOMAX 0.400000000000000022 MG PO ×2 (16:15→21:09)
[2024-01-01] MEDS: ZOFRAN 4 MG IV ×2 (16:15→21:14)
[2024-01-01 16:21] VITALS: BP 123/67
[2024-01-01 16:22] LABS: Blood Urea Nitrogen 14 mg/dl (9-20); Calcium 9.5 mg/dl (8.4-10.2); Carbon Dioxide 25 mmol/L (22-30); Chloride 106 mmol/L (98-107); Estimated Creatinine Clearance > 125 ml/min; Glucose 104 mg/dl (70-99); Potassium 4.1 mmol/L (3.5-5.1); Sodium 140 mmol/L (135-145); eGFR > 60.00
--- NOTE | 2024-01-01 16:27 | HP.FOC2 ---
Focused History & Physical
Chief Complaint
HPI:
Chief Complaint: left ureteral stone
HPI / Indication for Planned Procedure: 3 ED visits; still in pain
Relevant Past Medical History: Other (psyciatric/mood disorders)
Relevant Social History: Negative
Relevant Family History: Negative
Relevant Past Surgical History: Negative
Review of Systems
Review of Pertinent Systems: All Systems Negative
Medication
See Medication form for detailed medications: Yes
Medication List (including Herbals & OTC):
oxcarbazepine 300 mg tablet 900 mg PO HS 01/01/24
vortioxetine 20 mg tablet (Trintellix) 20 mg PO HS 01/01/24
Medications Reviewed: Yes
Allergies and Reactions
Patient has Allergies: No
Noted Allergies and Reactions:
Allergy/AdvReac Type Severity Reaction Status Date / Time
amoxicillin Allergy Intermediate Hives Verified 12/31/23 18:16
Pertinent Physical Exam
All Other Systems: Negative
Head/Neck: Normal
Lungs: Normal
Heart: Normal
Abdomen: Normal
Extremities: Normal
Neurological: Normal
Diagnosis / Assessment
1.5 mm left UVJ stone with intractable pain
Plan / Procedure
will admit for pain control; will post for OR tomorrow if stone fails to pass
Anesthesia/Sedation to be done by Anesthesia Provider: Yes
[2024-01-01] MEDS: PERCOCET 5/325 1 TABLET PO (18:21)
--- NOTE | 2024-01-01 18:49 | PTCARENOTE ---
Patient arrived from ER around 1835 via stretcher in stable condition. Patient and mother oriented to room. Call valdes in place.
[2024-01-01] MEDS: NORMOSOL-R 1000 IV (19:39)
[2024-01-01] MEDS: MORPHINE SULFATE 4 MG IV ×2 (19:39→21:09)
[2024-01-01] MEDS: TRILEPTAL 900 MG PO (21:09)
[2024-01-01] MEDS: NON-FORMULARY ITEM 20 MG PO (21:26)
[2024-01-01 22:04] LABS: Urine Albumin Negative (Neg - Trace); Urine Bilirubin Negative (Negative); Urine Character Clear (Clear); Urine Color Yellow; Urine Glucose Negative (Negative); Urine Ketone Trace (Negative); Urine Leukocyte Negative (Negative); Urine Nitrite Negative (Negative); Urine Occult Blood 2+ (Negative); Urine Specific Gravity 1.025 (<1.030); Urine Urobilinogen Negative (Neg - 1+)
[2024-01-01 22:13] LABS: Urine Bacteria Moderate (Negative); Urine Calcium Oxalate Crystals Present; Urine Mucus Moderate; Urine White Cell 0-2 /HPF (0-5)
[2024-01-01 23:27] VITALS: BP 142/69
[2024-01-02] MEDS: MORPHINE SULFATE 4 MG IV (00:33)
[2024-01-02] MEDS: COMPAZINE 5 MG IV (01:32)
[2024-01-02 02:04] LABS: Glucose - Point of Care 103 mg/dl (70-99)
[2024-01-02] MEDS: TORADOL 15 MG IV ×2 (04:25→09:04)
--- NOTE | 2024-01-02 05:55 | PTCARENOTE ---
pt passed a 0.3cm stone.
--- NOTE | 2024-01-02 07:40 | W.PN.URO.CBU ---
Today's Communication / Plan
-
discharge
Assessment / Plan
-
left ureteral stone -- passed
Diagnosis
-
Date of Service: January 02, 2024
-
Patient Diagnosis:
left ureteral stone
Subjective
-
stone passed ~ 4 AM and has been pain-free since
Objective
-
Vital Signs
Temp Pulse Resp BP Pulse Ox
98.2 F 49 16 142/69 96
01/01/24 23:27 01/01/24 23:27 01/01/24 23:27 01/01/24 23:27 01/01/24 23:27
Intake and Output
01/01/24 01/02/24 01/03/24
06:59 06:59 06:59
Intake Total 600 / 600
Output Total 625 / 625
Balance -25 / -25
Intake:
IV fluids (Total) 600 / 600
Output:
Urine, Voided 625 / 625
Laboratory Results
01/01/24 15:54
01/01/24 15:54
Physical Exam
-
General - well developed, well nourished, no acute distress
[2024-01-02 07:50] VITALS: BP 124/67
[2024-01-02 08:16] VITALS: BP 124/67
--- NOTE | 2024-01-02 09:46 | CM ---
Patient passed L ureteral stone @ 4:00AM. Discharged this AM.
== END 2024-01-02 09:28 | disposition home or self-care (01) | DRG 694 ==
LOC: 2 SOUTH 17:43
PROVIDERS: ADMITTING PHYSICIAN Specialist; EMERGENCY PHYSICIAN Emergency Medicine; FAMILY PHYSICIAN Family Medicine
DX: N20.1 Calculus of ureter (principal); F31.9 Bipolar disorder, unspecified; F41.9 Anxiety disorder, unspecified; F17.200 Nicotine dependence, unspecified, uncomplicated; Z88.0 Allergy status to penicillin; Z79.899 Other long term (current) drug therapy
CPT/HCPCS: 80048; 81003; 81015; 82962; 85025; 87086; 96361; 96374; 96375; 99285

== ENCOUNTER → 2024-04-09 16:26 | Outpatient (REF) | payer BC, SELFPAY | LOC: RAD 16:26 | PROVIDERS: ATTENDING PHYSICIAN Surgery; FAMILY PHYSICIAN Family Medicine | DX: N13.2 Hydronephrosis with renal and ureteral calculous obstruction (principal) | CPT/HCPCS: 74018 ==

== ENCOUNTER 2024-12-08 05:15 | Emergency (ER) | payer BC, SELFPAY ==
[2024-12-08 05:20] VITALS: BP 156/80
[2024-12-08 05:30] VITALS: BMI 35.4
[2024-12-08] MEDS: ZOFRAN 4 MG IV (05:43)
[2024-12-08 05:46] LABS: % Basophils 0.5 % (0-2); % Eosinophils 1.7 % (0-6); % Immature Granulocytes 0.6 % (0-0.5); % Lymphocytes 35.4 % (20.5-51.1); % Monocytes 8.5 % (1.7-9.3); % Neutrophils 53.3 % (42.2-75.2); Absolute Eosinophils 0.1 10^3/uL (0-0.7); Absolute Lymphocytes 2.3 10^3/uL (1.2-3.4); Absolute Monocytes 0.6 10^3/uL (0.1-0.6); Absolute Neutrophils 3.4 10^3/uL (1.4-6.5); Hematocrit 41.8 % (39.0-52.0); Hemoglobin 15.3 g/dL (13.0-18.0); Mean Corp Hgb Conc. 36.6 g/dL (33.0-37.0); Mean Corpuscular Hgb 29.6 pg (27.0-31.0); Mean Corpuscular Volume 80.9 fL (80.0-94.0); Mean Platelet Volume 11.2 fL (7.4-10.4); Nucleated Red Blood Cells % 0 % (-); Platelet Count 196 10^3/uL (130-400); Red Blood Cell Count 5.17 10^6/uL (4.70-6.10); White Blood Cell Count 6.4 10^3/uL (4.8-10.8)
[2024-12-08] MEDS: TORADOL 15 MG IV (05:47)
[2024-12-08 06:00] LABS: ALT (SGPT) 37 U/L (0-50); AST (SGOT) 29 U/L (17-59); Albumin 5.1 g/dl (3.5-5.0); Alkaline Phosphatase 50 U/L (38-126); Blood Urea Nitrogen 14 mg/dl (9-20); Calcium 9.5 mg/dl (8.4-10.2); Carbon Dioxide 22 mmol/L (22-30); Chloride 108 mmol/L (98-107); Estimated Creatinine Clearance > 125 ml/min; Glucose 132 mg/dl (70-99); Sodium 141 mmol/L (135-145); Total Bilirubin 0.6 mg/dl (0.2-1.3); Total Protein 8.1 g/dl (6.3-8.2); eGFR > 60.00
[2024-12-08 07:22] LABS: Urine Albumin 3+ (Neg - Trace); Urine Bilirubin Negative (Negative); Urine Character Cloudy (Clear); Urine Color Yellow; Urine Glucose Negative (Negative); Urine Ketone Negative (Negative); Urine Leukocyte 1+ (Negative); Urine Nitrite Negative (Negative); Urine Occult Blood 4+ (Negative); Urine Specific Gravity 1.025 (<1.030); Urine Urobilinogen Negative (Neg - 1+)
[2024-12-08 07:58] LABS: Urine Amorphous Seen
[2024-12-08 08:03] LABS: Urine Red Blood Cell >100 /HPF (0-2)
[2024-12-08 08:04] LABS: Urine Bacteria Few (Negative)
[2024-12-08 08:26] VITALS: BP 139/84
--- NOTE | 2024-12-08 08:27 | ED.GENMED ---
History of Present Illness
General
Chief Complaint: Flank Pain
Source: patient and family
Time Seen by Provider: 12/08/24 06:56
History of Present Illness
History of Present Illness:
24-year-old male who presents with acute left flank pain. The patient states that he has a history of kidney stones. Pain is improved now. Pain was severe. He follows with Dr Garcia. no fevers. no dysuria.
Past History
Past History
ED Past Medical History: Asthma, Psychiatric (Anxiety, depression, bipolar) and Other (kidney stones )
ED Past Surgical History: Appendectomy
Social History
Tobacco: Smoker
Alcohol: None
Drug: Marijuana (Medical marijuana)
Personal: Single
Living: with family
Phy Exam
Physical Exam
Physical Exam:
CONSTITUTIONAL Patient alert and oriented to person, place and time. Well-appearing. Vital signs reviewed.
HEAD atraumatic, normocephalic.
EYES eyelids normal to inspection, Extraocular muscles intact, Conjunctiva normal, Sclera normal.
NECK normal range of motion, Trachea midline, no jugular venous distention.
RESPIRATORY CHEST No respiratory distress noted, Chest expansion equal
ABDOMEN abdomen nontender, Bowel sounds normal. No distention.
BACK normal inspection, no obvious deformities, no CVA tenderness
UPPER EXTREMITY range of motion normal, Motor strength normal, no cyanosis, no edema.
LOWER EXTREMITY range of motion normal, Motor strength normal, no cyanosis, no edema.
NEURO Speech normal, No focal motor deficits, Alderson coma scale 15, Memory normal, Cranial Nerves intact to screening exam.
SKIN skin warm, dry, and normal in color.
Course
Orders/Labs/Results
Orders:
Orders
12/08/24 05:39
CMP [Comprehensive Metabolic Panel] Urgent
Complete Blood Count/With Diff Urgent
12/08/24 05:42
Ketorolac [Toradol] 15 mg .ROUTE .STK-MED ONE
Ondansetron Injectable [Zofran] 4 mg .ROUTE .STK-MED ONE
12/08/24 05:43
Ondansetron Injectable [Zofran] 4 mg IV NOW STA
12/08/24 05:45
Ketorolac [Toradol] 15 mg IV NOW STA
12/08/24 06:40
Urine Microscopic Reflex Cult Urgent
Urine Reflex Culture from UA [Urinalysis Reflex To Culture] Urgent
Date Specimen was Collected: 12/08/24
Time Specimen was Collected: 06:39
Urine Culture Urgent
DANIEL Source: U
Specimen Description:
Date Specimen was Collected: 12/08/24
Time Specimen was Collected: 06:39
12/08/24 07:01
CT Abd/pel Without Iv Or Oral Urgent
Comment:
Reason For Exam: L flank pain
12/08/24 08:31
HYDROmorphone [Dilaudid] 0.5 mg IV NOW STA
Abnormal Lab Results
12/08/24 12/08/24
05:39 06:40
MPV 11.2 H fL
(7.4-10.4)
Immature Gran % 0.6 H %
(0-0.5)
Chloride 108 H mmol/L
(98-107)
Glucose 132 H mg/dl
(70-99)
Albumin 5.1 H g/dl
(3.5-5.0)
Ur Occult Blood Reflex 4+ A
(Negative)
Leukocyte Esterase Rfl 1+ A
(Negative)
Urine RBC >100 A /HPF
(0-2)
Urine Bacteria (Reflex) Few A
(Negative)
Urine Albumin (Reflex) 3+ A
(Neg - Trace)
12/08/24 05:39
12/08/24 05:39
Vital Signs
Initial and Last Documented VS:
Initial Vital Signs
Temp Pulse Resp BP Pulse Ox
97.6 F 60 28 156/80 100
12/08/24 05:20 12/08/24 05:20 12/08/24 05:20 12/08/24 05:20 12/08/24 05:20
Last Documented Vital Signs
Temp Pulse Resp BP Pulse Ox
97.6 F 51 18 139/84 98
12/08/24 05:20 12/08/24 08:26 12/08/24 08:26 12/08/24 08:26 12/08/24 08:26
MDM/Problems Addressed
Differential Diagnosis Includes:
Pyelonephritis, ureterolithiasis
MDM/Problems Addressed:
Kidney stone
*Radiology
Radiology exam reviewed: preliminary read by ED provider (Kidney send noted proximal ureter)
*Pulse Oximetry
Patient hypoxic: no
*Critical Care Note
Total Time (30-74mins, 75-104mins- exclusive of procedures): Not Applicable
Data Reviewed
Source: patient and family (Mom states that he does get very anxious about this that last time he was about that surgery but passed the stone)
Patient Management
Escalation/DeEscalation of care consider admission/obs:
Patient reassessed and now feels much better. Symptoms and pain have resolved. Okay for outpatient management with trial of stone passage. Recommended outpatient urology follow-up
ED Attending Note
-
Portions of this chart may have been created with voice recognition software.� Occasional wrong word or��sound alike� substitutions may have occurred due to the inherent limitations of voice recognition software.
Discharge Plan
Departure
Patient Disposition: Home (Routine Discharge)
Date of Disposition: 12/08/24
Time of Disposition: 10:12
Patient with high blood pressure during this ER visit?: No
Discharge Problem:
Ureterolithiasis
Instructions: Kidney Stones (DC)
Prescriptions:
New
tamsulosin [Flomax] 0.4 mg capsule
0.4 mg PO HS Qty: 20 0RF
hydrocodone-acetaminophen 5-325 mg tablet
2 tab PO Q6H PRN (Reason: Pain) Qty: 14 0RF
No Action
oxcarbazepine 300 mg tablet
900 mg PO HS
Trintellix 20 mg tablet
20 mg PO HS
Referrals:
Stormy Barraza, DO [Family Provider] -
Activity Restrictions/Additional Instructions:
Please see urology in the next 1 week for follow-up and reevaluation. Return immediately for shortness of breath, worsening pain or any other concerns. Please drink plenty of fluids. Please use ibuprofen every 6 hours for pain control
Interventions
Interventions:
*Risk Screen - Suicide Last Done: 12/08/24 05:20
*General Assessment Last Done: 12/08/24 05:30
*Neglect/Abuse Screening Last Done: 12/08/24 05:20
*ED- Fall Risk Assessment Last Done: 12/08/24 05:30
*ED COVID-19 Vaccine History Last Done: 12/08/24 05:30
VF-Ixmewa-Tojqtvjnjo Assessment Last Done: 12/08/24 05:58
ED-Male Genitourinary Assessment Last Done: 12/08/24 05:58
Discharge Date and Time
Print Language: SWAZI
[2024-12-08] MEDS: DILAUDID 0.5 MG IV (08:47)
[2024-12-08 10:40] VITALS: BP 124/72
== END 2024-12-08 10:40 | disposition home or self-care (01) ==
LOC: EMR 05:15
PROVIDERS: Student in an Organized Health Care Education/Training Program; EMERGENCY PHYSICIAN Emergency Medicine; FAMILY PHYSICIAN Family Medicine
DX: N20.2 Calculus of kidney with calculus of ureter (principal); J45.909 Unspecified asthma, uncomplicated; F17.200 Nicotine dependence, unspecified, uncomplicated; Z90.49 Acquired absence of other specified parts of digestive tract
CPT/HCPCS: 96374; 96375; 99284; 74176; 80053; 81003; 81015; 85025; 87086

== ENCOUNTER → 2024-12-18 14:59 | Outpatient (REF) | payer BC, SELFPAY | LOC: RAD 14:59 | PROVIDERS: ATTENDING PHYSICIAN Surgery | DX: N13.2 Hydronephrosis with renal and ureteral calculous obstruction (principal) | CPT/HCPCS: 74018 ==

== ENCOUNTER 2025-01-05 06:08 | Day surgery (SDC) | payer BC, SELFPAY ==
[2025-01-05 06:24] VITALS: BMI 34.2
[2025-01-05 06:29] VITALS: BP 111/61
[2025-01-05 08:18] VITALS: BP 111/61; BP 117/62
[2025-01-05 08:30] VITALS: BP 120/58
[2025-01-05 08:45] VITALS: BP 121/65
[2025-01-05] MEDS: DETROL LA 4 MG PO (08:46)
[2025-01-05] MEDS: Pyridium 200 MG PO (08:47)
[2025-01-05 09:15] VITALS: BP 127/70
[2025-01-05] MEDS: ROXICODONE 5 MG PO (09:26)
[2025-01-05] MEDS: TYLENOL 650 MG PO (09:27)
[2025-01-05 09:30] VITALS: BP 132/84
== END 2025-01-05 09:49 | disposition home or self-care (01) ==
LOC: SDS 06:08
PROVIDERS: ATTENDING PHYSICIAN Surgery
DX: N13.2 Hydronephrosis with renal and ureteral calculous obstruction (principal); Z87.442 Personal history of urinary calculi
CPT/HCPCS: 52356; 74018; 76000; C1894; C2617